=== PATIENT | male | born 1960 | race Caucasian/White ===

== ENCOUNTER 2019-09-21 06:21 | Day surgery (SDC) | payer BC, SELFPAY ==
[2019-09-21 06:32] VITALS: BP 141/93; PULSE 77; RESP 18; TEMP 36.5; O2SAT 98
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
--- NOTE | 2019-09-21 06:52 | PDOC.DSDIS_ITS ---
Discharge Plan Disposition Patient Disposition: HOME Condition: Good Discharge Details Reason For Visit: Colonoscopy Attending Provider: Adrienne Drake Primary Care Provider: Lucien Tong Home Meds and New Rx's Prescriptions: Continued aspirin [Adult Low Dose Aspirin] 81 mg tablet,delayed release (DR/EC) 81 mg PO DAILY RF: 0 acetaminophen [Acetaminophen Extra Strength] 500 mg tablet 1,000 mg PO Q6H PRNRF: 0 atorvastatin 80 mg tablet 80 mg PO DAILY RF: 0 nitroglycerin 0.4 mg Tablet, Sublingual 0.4 mg SUBLINGUAL Q5-15M PRNRF: 0 Discontinued bisacodyl [Dulcolax (bisacodyl)] 5 mg tablet,delayed release (DR/EC) 5 mg PO ONCE Qty: 4 RF: 0 polyethylene glycol 3350 17 gram/dose powder 17 g PO ONCE Qty: 238 RF: 0 bisacodyl [Dulcolax (bisacodyl)] 5 mg tablet,delayed release (DR/EC) 5 mg PO ONCE Qty: 4 RF: 0 Discharge Instructions Additional Instructions: Findings: One small polyp was removed from the colon. My office will contact you with biopsy results. Diverticulosis was present. Make sure to take in 30 grams of fiber daily. Follow up: Plan for a colonoscopy in 5 years if the polyp is adenomatous. Please call if you develop: fevers >101.5 Nausea or Vomiting Abdominal pain that is not transient Bleeding DAY SURGERY UNIT POST COLONOSCOPY INSTRUCTIONS 1. Because there will be medication in your system for the next 24 hours, you may feel a little sleepy. Your coordination will be affected. Therefore: a. Do not drive or operate dangerous equipment for 24 hours. b. Do not drink alcohol beverages for 24 hours (not even beer). c. Plan to go home and rest for the day. 2. Generally there are no restrictions on your activity after a day or so has gone by, but you may feel a bit fatigued for a few days. 3 After you arrive home you may have a light meal and return to a normal diet as you can tolerate it without feeling sick to your stomach. 4. After surgery, you may feel pain or discomfort. This should be only transient, but if it persists please contact your doctor. 5. If there are any questions regarding the findings of your procedure, please feel free to contact your doctor. 6. If you are unable to contact your doctor with a problem, contact the [facility] at [phone]. 2. Continue all your regular medications unless directed otherwise. I understand the above instructions and have no questions. Signature of Patient or Responsible Adult Escort Date/Time Name of Responsible Adult Escort Signature of Nurse Date/Time Activity:: Activity as Tolerated Diet:: As Tolerated Discharge Orders Discharge Orders: Discharge Order (Routine); Ordered 09/21/19 Ordered By: Adrienne Drake DS: Diagnosis Discharge Diagnosis (1) Diverticulosis: Status: Acute (2) Colon polyp: Status: Acute
[2019-09-21] MEDS: Lactated Ringers 1,000 ML 80 ML IV (07:06)
--- NOTE | 2019-09-21 07:42 | BOWEL_PTH ---
PATIENT: Jatin Pineda LOC: [facility] U#:[id number] AGE/SX: 59/M ROOM: RE09/21/[address]: Adrienne Drake MD : [id number] BED: DIS: 09/21/2019 SPEC #: [id number] RECD: 09/21/19 12:22 STATUS: SERA REQ #: [id number] NIKA: 09/21/19 07:[address]: Adrienne Drake DEPT: Surgical Specimen RECD BY: Flaca Vazquez ENTERED: 09/21/19 12:23 SP TYPE: Bowel OTHR DR: Lucien Tong Tissues: 1 - BIOPSY BOWEL Procedures: GROSS AND MICRO LEVEL 4 Comments: [id number]
--- NOTE | 2019-09-21 08:03 | W.COLOREPORT ---
Date of service: 09/21/19 Time of Service: 08:03 Colonoscopy Report Date of procedure: 09/21/19 Pre-op diagnosis general: Screening Post-op diagnosis procedure note: other (Colon polyp, diverticulosis) Procedure: Colonoscopy with snare polypectomy Surgeon: Adrienne Drake Anesthesia proc note operative: MAC Indications: This 59 year old man presents for his first screening colonoscopy. No symptoms or FH colon cancer. Procedure Description: The patient was placed in the left Pryor position. Propofol was titrated to sedation. Digital rectal examination revealed no abnormalities. The scope was advanced to the cecum without difficulty. The ileocecal valve and appendiceal orifice were clearly identified. The prep was good. The scope was slowly withdrawn over the course of greater than 6 minutes with no abnormalities seen in the ascending or transverse colon. In the descending colon a less than 1cm was removed with the snare and sent to pathology. The sigmoid colon and rectum were normal including on retroflexed view. He was noted to have diverticulosis throughout the colon. The patient tolerated the procedure well and was stable to recovery. Plan for colonoscopy in 5 years if the polyp is adenomatous.
[2019-09-21 08:40] VITALS: BP 123/77; PULSE 61; RESP 16; TEMP 36.4; O2SAT 99
== END 2019-09-21 08:46 | disposition home or self-care (01) ==
PROVIDERS: PCP Family Medicine; Visit Provider Surgery
PROC: 0DJD8ZZ Inspection of Lower Intestinal Tract, Via Natural or Artificial Opening Endoscopic (ICD-10-PCS; CPT 45378; principal; 2019-09-21 07:30)
DX: Z12.11 Encounter for screening for malignant neoplasm of colon (principal); K63.5 Polyp of colon; K57.30 Diverticulosis of large intestine without perforation or abscess without bleeding
CPT/HCPCS: 45385; 88305; NC

== ENCOUNTER 2023-07-07 14:19 | Outpatient (CLI) | payer OTHER, SELFPAY ==
--- NOTE | 2023-07-07 11:15 | DI.RAD_ITS ---
Exam(s) XR KNEE RT 4V AP,LAT,MADDIE,PAT EXAM: XR KNEE RT 4V AP,LAT,MADDIE,PAT CLINICAL HISTORY: RIGHT KNEE PAIN. TECHNIQUE: 2D digital imaging was performed. COMPARISON: No exams were available for comparison FINDINGS: Five views. No evidence of fracture or joint effusion. No joint space narrowing in all 3 compartments. No osteo chondral defects. No osteophytes. No osseous lesions. Surgical clips noted in the medial subcutaneous soft tissues. This may be from prior saphenous vein harvesting IMPRESSION: No acute osseous findings in the right knee. DATA REPOSITORY: RADIATION DOSE DELIVERED:
== END 2023-07-07 14:20 | disposition home or self-care (01) ==
LOC: DIORS 14:20
PROVIDERS: PCP Family Medicine; Visit Provider Student in an Organized Health Care Education/Training Program
DX: M25.561 Pain in right knee (principal)
CPT/HCPCS: 73564

== ENCOUNTER → 2023-07-26 03:16 | Outpatient (CLI) | payer OTHER, SELFPAY ==
--- NOTE | 2023-07-26 07:00 | DI.MRI_ITS ---
Exam(s) MR LOWER JOINT RT WO EXAM: MR LOWER JOINT RT WO CLINICAL HISTORY: PAIN, internal derangement right knee, M23.91 TECHNIQUE: Multiplanar multisequence MRI of the knee was performed. COMPARISON: CR XR KNEE RT 4V AP,LAT,MADDIE,PAT from 07/07/2023 FINDINGS: EFFUSION: There is a minimal amount of increased joint fluid. There is no prominent knee joint effus ion and there is no Hall cyst in the popliteal fossa. MARROW:There is no abnormal intraosseous signal in the femoral condyles and tibial plateau nor within the fibular head and neck. There is, however, there appears to be a para-articular ganglion cyst off the posterior aspect of the proximal tibiofibular joint and extending inferiorly along the poplit eus muscle and medial aspect of the fibular neck. There are no significant osseous lesions. PATELLOFEMORAL COMPARTMENT: There is signal abnormality in the distal quadriceps tendon medial aspect and there is also significant signal abnormality in the suprapatellar intra-articular quadriceps fat pad. Findings in distal quadriceps tendon reflect mild intrasubstance tearing/tendinitis. No full- thickness tear. The lateral aspect of the distal quadriceps tendon appears unremarkable. There is n o abnormal intraosseous signal in the patella itself and no abnormal findings in the patellar ligamen t. There is mild increased signal and thinning of the retropatellar cartilage over the adjacent medial f acet.There is no prominent bone contusion in the patella and no intraosseous signal to suggest by lat eral patellar dislocation. There is also no evidence of patellar retinacular tearing. CRUCIATE LIGAMENTS: The anterior cruciate ligament is intact.The posterior cruciate ligament is intac t. MEDIAL COMPARTMENT/MEDIAL MENISCUS: There is mild excess fluid around the posterior horn of the media l meniscus. However, there is no obvious identifiable tear of the posterior horn. The anterior horn of the medial meniscus appears intact. There is minimal articular cartilage thinning in the medial compartment. No subarticular edema. No osteochondral defects. No osteophytes. MEDIAL COLLATERAL LIGAMENT: Intact LATERAL COMPARTMENT/LATERAL MENISCUS: There is no evidence of lateral meniscal tear.There are no marilia dral defects, osteochondral defects, subarticular marrow edema, nor osteophytes evident. ILIOTIBIAL BAND: Intact LATERAL COLLATERAL LIGAMENT COMPLEX: The fibular collateral ligament is intact. The biceps femoris t endon is intact.Popliteus muscle and tendon are intact. IMPRESSION: 1. There is signal abnormality consistent with tendinitisin the medial aspect of the distal most quad riceps tendon and there is also abnormal increased signal in the intra-articular fat quadriceps fat p ad immediately posterior to this within the intra-articular suprapatellar compartment. There is mild thinning and signal abnormality evident in the retropatellar cartilage over the medial facet. No os teochondral defect evident at this level and there are no patellar retinacular tears nor evidence to suggest recent patellar dislocation. The patellar ligament appears unremarkable. 2. There are no cruciate nor significant collateral ligament tears. 3. No obvious meniscal tears nor degenerative cartilage changes in the medial lateral compartments. 4. There is a para-articular ganglion cyst off the posterior 0 medial aspect of the proximal tibiofib ular joint which extends caudally adjacent to the popliteus musculotendinous junction. There is no a bnormal intraosseous signal within this joint. Other findings as above. DATA REPOSITORY:
== END ==
PROVIDERS: PCP Family Medicine; Visit Provider Student in an Organized Health Care Education/Training Program
DX: M23.91 Unspecified internal derangement of right knee (principal)
CPT/HCPCS: 73721

== ENCOUNTER 2024-06-25 15:58 | Outpatient (CLI) | payer OTHER, SELFPAY ==
--- NOTE | 2024-06-25 15:45 | DI.RAD_ITS ---
Exam(s) XR KNEE RT 4V AP,LAT,MADDIE,PAT EXAM: XR KNEE RT 4V AP,LAT,MADDIE,PAT CLINICAL HISTORY: R knee pain. TECHNIQUE: 2D digital imaging was performed. Three views. COMPARISON: CR XR KNEE RT 4V AP,LAT,MADDIE,PAT from 07/07/2023 FINDINGS: BONES: No acute fracture is present. No bony destructive lesion is seen. JOINTS: The knee is normally aligned. No joint effusion is seen. SOFT TISSUE: Surgical clips noted in the posterior medial soft tissues. IMPRESSION: Unremarkable radiographs of the right knee. DATA REPOSITORY: RADIATION DOSE DELIVERED:
== END 2024-06-25 15:59 | disposition home or self-care (01) ==
LOC: DIORS 15:59
PROVIDERS: PCP Family Medicine; Referring Provider Family Medicine; Visit Provider Physician Assistant
DX: S80.01XA Contusion of right knee, initial encounter (principal); M76.51 Patellar tendinitis, right knee
CPT/HCPCS: 73564